=== PATIENT | male | born 1990 | race Two or more races ===

== ENCOUNTER 2018-06-11 07:31 | Emergency (ER) | payer MEDICAID, OTHER ==
[~2018-06-11] VITALS: Ht 170.2 cm; Wt 74.8 kg
[2018-06-11 07:58] VITALS: BP 152/91
== END 2018-06-11 08:00 ==
LOC: EDBD 07:31 → MERGE 07:40 → ER 07:40
DX: S60.512A Abrasion of left hand, initial encounter (principal); F17.210 Nicotine dependence, cigarettes, uncomplicated; F12.10 Cannabis abuse, uncomplicated; F15.10 Other stimulant abuse, uncomplicated; Z02.89 Encounter for other administrative examinations; X58.XXXA Exposure to other specified factors, initial encounter; Y93.89 Activity, other specified; Y99.8 Other external cause status; Y92.89 Other specified places as the place of occurrence of the external cause

== ENCOUNTER 2023-05-07 00:13 | Emergency (ER) | payer MEDICAID ==
[~2023-05-07] VITALS: Ht 170.2 cm; Wt 79.0 kg
[2023-05-07 00:13] VITALS: BP 149/84; PULSE 85; RESP 20; O2SAT 98
[2023-05-07] MEDS ORDERED: CYCL-837 PO (01:57)
== END 2023-05-07 04:40 | disposition home or self-care (01) ==
LOC: ER 00:13
DX: S01.03XA Puncture wound without foreign body of scalp, initial encounter (principal); M25.532 Pain in left wrist; F17.210 Nicotine dependence, cigarettes, uncomplicated; F12.10 Cannabis abuse, uncomplicated; F15.10 Other stimulant abuse, uncomplicated; V43.52XA Car driver injured in collision with other type car in traffic accident, initial encounter; Y93.89 Activity, other specified; Y92.488 Other paved roadways as the place of occurrence of the external cause; Y99.8 Other external cause status
CPT/HCPCS: 70450; 72125

== ENCOUNTER 2024-04-25 13:33 | Inpatient (IN) | payer MEDICAID ==
[~2024-04-25] VITALS: Ht 165.1 cm; Wt 82.0 kg
[~2024-04-25 13:33] MED LIST: CYCL-837 PO
[2024-04-25] MEDS: LORazepam 2MG/ML-1ML VIAL IV ONE ×3 (14:06→14:29)
[2024-04-25] MEDS: LORazepam 2MG/ML-1ML VIAL ONE (14:18)
[2024-04-25] MEDS: SODIUM CHLORIDE 0.9% 1,000 ML IVB ONE (14:23)
[2024-04-25] MEDS: ONDANSETRON HCL 4 MG/2 ML VIAL IV ONE (14:28)
[2024-04-25] MEDS: MULTIPLE VITAMIN TAB PO ONE (14:29)
[2024-04-25] MEDS: THIAMINE 100mg/ml INJ (200mg/2ml VIAL) IV ONE (14:29)
[2024-04-25 14:43] VITALS: PULSE 89; RESP 21; O2SAT 98
--- NOTE | 2024-04-25 15:01 | ED.PDOC ---
HPI (NEURO) HPI Comments 34-year-old male with no reported PMHx brought in by EMS presents s/p seizure activity. Per EMS, patient was showering when family witnessed patient having a tonic clonic seizure that lasted approximately 30 seconds. Patient has no history of seizures. Per EMS, family endorses that patient drinks heavily and drinks about 750cc of liquor a day. Patient was tremulous during evaluation with stuttered speech, then began to have another tonic clonic seizure in the ambulance bay. Patient endorses heavy alcohol use, cigarette use, marijuana use, and methamphetamine use. No other symptoms or modifying factors present at this time. Chief Complaint: Seizure Time Seen by MD: 14:05 Primary Care Provider: UNK Reviewed Notes: Medications, Allergies Information Source: Emergency Med Personnel Mode of Arrival: EMS Severity: Moderate Headache Severity: None Timing: Hours Duration: Intermittent Prehospital treatment: None Seizure Quality: Tonic-clonic Seizure Location: Generalized Onset: With light exertion (SHOWERING) Circumstances: Spontaneous Past Medical History PAST MEDICAL HISTORY: Denies Surgical History: Denies all surgeries Family History Family History: Unknown Social History Smoker: Cigarettes Alcohol: Heavy Drugs: Marijuana, Methamphetamine Lives In: Home Constitutional: denies: chills, diaphoresis, fatigue, fever, malaise, sweats, weakness, others EENTM: denies: blurred vision, double vision, ear bleeding, ear discharge, ear drainage, ear pain, ear ringing, eye pain, eye redness, hearing loss, mouth pain, mouth swelling, nasal discharge, nose bleeding, nose congestion, nose pain, photophobia, tearing, throat pain, throat swelling, voice changes, others Respiratory: denies: cough, hemoptysis, orthopnea, SOB at rest, shortness of breath, SOB with excertion, stridor, wheezing, others Cardiovascular: denies: chest pain, dizzy spells, diaphoresis, Dyspnea on exertion, edema, irregular heart beat, left arm pain, lightheadedness, palpitations, PND, syncope, others Gastrointestinal: denies: abdomen distended, abdominal pain, blood streaked bowels, constipated, diarrhea, dysphagia, difficulty swallowing, hematemesis, melena, nausea, poor appetite, poor fluid intake, rectal bleeding, rectal pain, vomiting, others Genitourinary: denies: burning, dysuria, flank pain, frequency, hematuria, incontinence, penile discharge, penile sore, pain, testicle pain, testicle swelling, urgency, others Neurological: reports: seizure; denies: dizziness, fainting, headache, left sided numbness, left sided weakness, numbness, paresthesia, pre-existing deficit, right sided numbness, right sided weakness, speech problems, tingling, tremors, weakness, others Musculoskeletal: denies: back pain, gout, joint pain, joint swelling, muscle pain, muscle stiffness, neck pain, others Integumetry: denies: bruises, change in color, change in hair/nails, dryness, laceration, lesions, lumps, rash, wounds, others Allergic/Immunocompromised: denies: Difficulty Healing, Frequent Infections, Hives, Itching, others Hematologic/Lymphatic: denies: anemia, blood clots, easy bleeding, easy bruising, swollen glands, others Endocrine: denies: excessive hunger, excessive sweating, excessive thirst, excessive urination, flushing, intolerance to cold, intolerance to heat, unexplained weight gain, unexplained weight loss, others Psychiatric: denies: anxiety, bipolar disorder, depression, hopeless, panic disorder, schizophrenia, sleepless, suicidal, others All Other Systems: Reviewed and Negative Physical Exam Exam Comments Patient was initially tremulous, during my HPI began to state he felt like he was going to seize and had a tonic-clonic seizure during my examination General Appearance: Moderate Distress, Normal HEENT: Normal ENT Inspection Neck: NOT DONE Respiratory: Chest Non-Tender, Lungs Clear, No Accessory Muscle Use, No Respiratory Distress, Normal Breath Sounds Cardiovascular: No Edema, No JVD, No Murmur, No Gallop, Normal Peripheral Pulses, Regular Rate/Rhythm Breast Exam: Deferred Gastrointestinal: No Organomegaly, Non Tender, No Pulsatile Mass, Normal Bowel Sounds, Soft Genitalia: Deferred Pelvic: Deferred Rectal: Deferred Extremities: No calf tenderness, Normal capillary refill, Normal inspection, Normal range of motion, Non-tender, No pedal edema Neurologic: Alert, Other (STUDDERED SPEECH; AWAKE; speaking in full sentences, however began to ACTIVELY SEIZING UPON EVALUATION) Cerebellar Function: NOT DONE Reflexes: NOT DONE Skin: NOT DONE Lymphatic: NOT DONE EKG EKG : Pulse Rate (adult): 77 [place]: Normal Cardiac Rhythm: NSR Block: None Hypertrophy: None ST: Normal Was a procedure done? Was a procedure done?: No Differential Diagnosis (SZ) Seizure: Alcohol Withdrawl, Idiopathic, Epilepsy-Status, Other (DEHYDRATION, INTRACRANIAL HEMORRHAGE, DRUG ABUSE ) General Weakness: Electrolyte imbalance Headache: Other X-Ray, Labs, Meds, VS Vital Signs Date Time Temp Pulse Resp B/P (MAP) Pulse Ox O2 Delivery O2 Flow Rate FiO2 04/25/24 15:01 77 04/25/24 14:43 89 21 98 Room Air* 0 21 04/25/24 14:16 97.7 76 17 128/82 (97) 99 97.7 04/25/24 13:48 77 04/25/24 13:38 98.1 88 22 146/91 (109) 100 Lab Test 04/25/24 15:13 04/25/24 14:45 Range/Units Urine Color Yellow Yellow Urine Clarity Turbid H Clear Urine pH 6.0 5.0-9.0 Urine Specific [place] 1.028 1.001-1.035 Urine Protein 1+ H Negative Urine Ketones 2+ H Negative Urine Blood Negative Negative /uL Urine Nitrite Negative Negative Urine Bilirubin Negative Negative Urine Urobilinogen Normal Negative mg/dL Urine Leukocyte Esterase Negative Negative /uL Urine RBC 2 0 - 3 /hpf Urine Microscopic WBC 2 0-3 /HPF Urine Squamous Epithelial Cells Few <5 /hpf Urine Bacteria None seen None Seen /hpf Urine Mucus Few None Seen Urine Glucose Normal Normal mg/dL Urine Opiates Screen Neg NEGATIVE Urine Fentanyl Screen Neg NEGATIVE Urine Barbiturates Screen Neg NEGATIVE Urine Phencyclidine Screen Neg NEGATIVE Urine Amphetamines Screen Neg NEGATIVE Urine Benzodiazepines Screen Neg NEGATIVE Urine Cocaine Screen Neg NEGATIVE Urine Cannabinoids Screen Neg NEGATIVE White Blood Count 8.0 4.4-10.8 10^3/uL Red Blood Count 4.67 4.5-5.90 10^6/uL Hemoglobin 15.1 13.5-17.5 g/dL Hematocrit 44.3 41.0-53.0 % Mean Corpuscular Volume 94.8 80.0-100.0 fL Mean Corpuscular Hemoglobin 32.4 H 28.0-32.0 pg Mean Corpuscular Hemoglobin Concent 34.2 32.0-36.0 g/dL Red Cell Distribution Width 13.2 11.8-14.3 % Platelet Count 153 140-450 10^3/uL Mean Platelet Volume 7.8 6.9-10.8 fL Neutrophils (%) (Auto) 88.5 H 37.0-80.0 % Lymphocytes (%) (Auto) 6.2 L 10.0-50.0 % Monocytes (%) (Auto) 4.3 0.0-12.0 % Eosinophils (%) (Auto) 0.6 0.0-7.0 % Basophils (%) (Auto) 0.4 0.0-2.0 % Neutrophils # (Auto) 7.1 1.6-8.6 10 ^3/uL Lymphocytes # (Auto) 0.5 0.4-5.4 10 ^3/uL Monocytes # (Auto) 0.3 0-1.3 10 ^3/uL Eosinophils # (Auto) 0 0-0.8 10 ^3/uL Basophils # (Auto) 0 0-0.2 10 ^3/uL Nucleated Red Blood Cells 0.1 % Sodium Level 141 136-145 mmol/L Potassium Level 3.6 3.5-5.1 mmol/L Chloride Level 104 98-107 mmol/L Carbon Dioxide Level 26 20-31 mmol/L Anion Gap 11 5-15 Blood Urea Nitrogen 12 9-23 mg/dL Creatinine 1.02 0.700-1.30 mg/dL Glomerular Filtration Rate Calc 100 >90 mL/min BUN/Creatinine Ratio 11.8 10.0-20.0 Serum Glucose 108 H 74-106 mg/dL Calcium Level 9.4 8.7-10.4 mg/dL Total Bilirubin 1.0 0.2-1.0 mg/dL Aspartate Amino Transferase (AST) 116 H 13-40 U/L Alanine Aminotransferase (ALT) 87 H 7-40 U/L Alkaline Phosphatase 73 46-116 U/L Total Protein 7.7 5.7-8.2 g/dL Albumin 4.8 3.2-4.8 g/dL Vitamin B12 Level Pending Plasma/Serum Blood Alcohol 3.4 <10 mg/dL Current Medications Medications (Trade) Dose Ordered Sig/Geoff Route Start Time Stop Time Status Last Admin Sodium Chloride 1,000 ml @ 1,000 mls/hr Q1H ONCE IVB 04/25/24 14:15 04/25/24 15:14 DC 04/25/24 14:23 Ondansetron HCl (Zofran) 4 mg ONCE ONCE IV 04/25/24 14:15 04/25/24 14:16 DC 04/25/24 14:28 Thiamine HCl 100 mg NOW ONCE IV 04/25/24 14:15 04/25/24 14:16 DC 04/25/24 14:29 Multivitamins (Mvi Tab) 1 tab NOW ONCE PO 04/25/24 14:15 04/25/24 14:16 DC 04/25/24 14:29 Folic Acid 1 mg/ Dextrose 50.2 ml @ 200 mls/hr Q16M ONCE INJ 04/25/24 14:15 04/25/24 14:30 DC 04/25/24 16:16 Lorazepam (Ativan Inj) 1 mg STAT ONCE IV 04/25/24 14:15 04/25/24 14:16 DC 04/25/24 14:28 Lorazepam (Ativan Inj) 2 mg STAT ONCE IV 04/25/24 14:15 04/25/24 14:16 DC 04/25/24 14:29 Lorazepam (Ativan Inj) 1 mg ONCE ONCE IV 04/25/24 14:05 04/25/24 14:14 DC 04/25/24 14:06 [place] [id number] Ph: [phone] DIAGNOSTIC IMAGING Diagnostic Imaging Report : [id number] Signed PATIENT: KARELY CORADO ACCT: [id number] UNIT: [id number] : 1990 LOC: OVERFLOW ROOM / BED: [address] [place] [address] AGE / SEX: 34 / M ADM STATUS: ADM IN SERVICE 1536 ORDERING PHYSICIAN: MAGGIE WEBB NP PROCEDURE(s): HWOCT - HEAD WITHOUT CONTRAST REASON: new onset seizure activity ORDER NUMBER(s): [id number], ACCESSION NUMBER(s): [id number] EXAM: CT HEAD WITHOUT CONTRAST INDICATION: new onset seizure activity TECHNIQUE: CT of the head without intravenous contrast. Radiation Dose : 1. Head: CT Dose: CTDI volume is 61 mGy. Dose-length product is 979 mGy*cm The dose indicators for CT are the volume Computed Tomography (CT) Dose Index (CTDIvol) and the Dose Length Product (DLP), and are measured in units of mGy and mGy-cm, respectively. These indicators are not patient dose, but values generated from the CT scanner acquisition factors. The report includes radiation exposure data for exposures received during this examination. COMPARISON: CT HEAD WITHOUT CONTRAST on DOS: 05/07/23 FINDINGS: There is no evidence of acute intracranial hemorrhage, extra-axial collection, mass effect, midline shift, herniation or hydrocephalus. The ventricles, sulci and cisterns are age appropriate. The martinez-white differentiation is intact. A couple of poorly defined subcentimeter hypodense foci in the inferior basal ganglia are unchanged from prior and likely represent enlarged perivascular spaces. The visualized paranasal sinuses and mastoid air cells are clear. The surrounding soft tissues and osseous structures are unremarkable. IMPRESSION: No evidence of acute intracranial abnormality. Radiation optimization: All CT scans at this facility use at least one of these dose optimization techniques: automated exposure control mA and/or kV adjustment per patient size (includes targeted exams where dose is matched to clinical indication) or iterative reconstruction. ATED BY: LIBRADO OLSON DO DICTATED DATE/TIME: 04/25/24 1619 SIGNED BY: LIBRADO OLSON DO SIGNED DATE/TIME: 04/25/24 1619 CC: 34-year-old male presents here status post seizure. Patient had a seizure at home while taking a shower. Patient was initially speaking in full sentences with me and had a tonic-clonic seizure during my examination. Nursing was called to bedside stat and patient was given Ativan 1 mg IV stat. Soon after he again felt he was going to have another seizure and again was given Ativan 1 mg IV stat.. At this time patient does have a history of heavy alcohol use. He is drinks about 750 cc of alcohol a day. However he had reduce consumption today. At this time stat CT scan of the brain has been done which does not demonstrate any acute pathology. Blood work has returned with very low alcohol levels which is likely the cause of his current seizures today. Patient was tremulous on my examination. Suspect acute alcohol withdrawal. Blood work has been done which is largely unremarkable. At this time hospitalist team has been contacted for admission. Time of 1ST Reevaluation: 14:35 Reevaluation 1ST: Unchanged Patient Education/Counseling: Diagnosis, Treatment, Prognosis Family Education/Counseling: Diagnosis, Treatment, Prognosis Departure 1 Departure Time of Disposition: 14:54 Impression: Primary Impression: Seizure Additional Impression: Alcohol withdrawal Qualified Codes: F10.939 - Alcohol use, unspecified with withdrawal, unspecified Disposition: 09 ADMITTED INPATIENT Admit to: [facility] Condition: Guarded Critical Care Note Critical Care Time?: Yes (35 min-critical care time only) Critical care comment: Time spent evaluating the patient, emergently treating seizure activity multiple times in the ER. Time spent with multiple reassessments of the patient. Speaking to family. Reviewing lab work. Speaking to hospitalist team. Concern for immediate deterioration of his neurologic and cardiac systems. Stability Stability form required: No I personally scribed for UTE HUNTLEY MD ([email or web address]) on 04/25/24 at 15:01. Electronically submitted by Jamel Greco ([email or web address]). UTE HUNTLEY MD Apr 25, 2024 15:01
[2024-04-25 15:04] LABS: Basophils # (auto) 0 10 ^3/uL (0-0.2); Basophils % (auto) 0.4 % (0.0-2.0); Eosinophils # (auto) 0 10 ^3/uL (0-0.8); Eosinophils % (auto) 0.6 % (0.0-7.0); Hematocrit 44.3 % (41.0-53.0); Hemoglobin 15.1 g/dL (13.5-17.5); Lymphocytes # (auto) 0.5 10 ^3/uL (0.4-5.4); Lymphocytes % (auto) 6.2 % (10.0-50.0); Mean Corpuscular Hemoglobin 32.4 pg (28.0-32.0); Mean Corpuscular Hgb Conc. 34.2 g/dL (32.0-36.0); Mean Corpuscular Volume 94.8 fL (80.0-100.0); Monocytes # (auto) 0.3 10 ^3/uL (0-1.3); Monocytes % (auto) 4.3 % (0.0-12.0); Neutrophils # (auto) 7.1 10 ^3/uL (1.6-8.6); Neutrophils % (auto) 88.5 % (37.0-80.0); Nucleated Red Blood Cells % 0.1 %; Platelet Count (auto) 153 10^3/uL (140-450); Red Blood Cells 4.67 10^6/uL (4.5-5.90); Red Cell Distribution Width 13.2 % (11.8-14.3)
[2024-04-25 15:18] LABS: Alanine Aminotransferase 87 U/L (7-40); Albumin 4.8 g/dL (3.2-4.8); Alkaline Phosphatase 73 U/L (46-116); Anion Gap 11 (5-15); Aspartate Aminotransferase 116 U/L (13-40); BUN/Creatinine Ratio 11.8 (10.0-20.0); Blood Alcohol 3.4 mg/dL (<10); Blood Urea Nitrogen 12 mg/dL (9-23); Calcium 9.4 mg/dL (8.7-10.4); Carbon Dioxide 26 mmol/L (20-31); Chloride 104 mmol/L (98-107); Glucose 108 mg/dL (74-106); Potassium 3.6 mmol/L (3.5-5.1); Sodium 141 mmol/L (136-145); Total Protein 7.7 g/dL (5.7-8.2)
[2024-04-25] MEDS ORDERED: MORPHINE SULFATE INJ 2 MG/ml SYRG IV PRN (15:45)
[2024-04-25] MEDS ORDERED: LORazepam 2MG/ML-1ML VIAL IV PRN (15:45)
[2024-04-25] MEDS ORDERED: NITROGLYCERIN 0.4 MG SL TAB SL PRN (15:45)
--- NOTE | 2024-04-25 15:53 | DVHHP2 ---
History of Present Illness Reason for Visit: Breakthrough seizures History of Present Illness Patient was a 34-year-old male presenting to the emergency room with acute seizure activity. According to family that was bedside, the patient had one witnessed tonic-clonic seizure at home prior to the ambulance arriving, as well as having one additional one in the ambulance [place] in the hospital. At the current time, patient was alert and able to follow commands. Patient does present with stuttering, and ataxic movements in his upper extremities. Apparently, the patient drinks approximately 750 mL of alcohol daily, with the patient reporting that he has not had any acute cessation. Alcohol screen at this time is currently negative. Patient denies any other illicit drug use. Patient denies having any previous medical history. Past Surgical History: None Family History: None Smoke: No ALCOHOL: heavy Drugs: None Lives: with Family Review of Systems Constitutional: Yes: Other (Denies tremors) Eyes: No: Pain, Vision change, Conjunctivae inflammation, Eyelid inflammation, Other, Redness ENT: No: Ear pain, Ear discharge, Nose pain, Nose discharge, Nose congestion, Mouth pain, Mouth swelling, Throat pain, Throat swelling, Other Respiratory: No: Cough, Dry, Shortness of breath, SOB with excertion, Wheezing, Hemoptysis, Pleuritic Pain, Sputum, Wheezing, Other Cardiovascular: No: Chest Pain, Palpitations, Orthopnea, Paroxysmal Noc. Dyspn ea, Edema, Lt Headedness, Other Gastrointestinal: No: Nausea, Vomiting, Abdominal Pain, Diarrhea, Constipation, Melena, Hematochezia, Other Genitourinary: No Dysuria, No Frequency, No Incontinence, No Hematuria, No Retention, No Other Musculoskeletal: No: other, neck pain, shoulder pain, arm pain, back pain, hand pain, leg pain, foot pain Skin: No: Rash, Lesions, Jaundice, Bruising, Other Neurological: No: Weakness, Numbness, Incoordination, Change in speech, Confusion, Seizures, Other Allergies: Coded Allergies: NO KNOWN ALLERGIES (Unverified , 06/22/09) Medications Current Medications Medications Dose Ordered Sig/Geoff Route Start Time Stop Time Status Last Admin Dose Admin Multivitamins 1 tab DAILY PO 04/26/24 10:00 UNV Thiamine HCl 100 mg DAILY IV 04/26/24 10:00 UNV Nitroglycerin 0.4 mg Q5MINP PRN SL 04/25/24 15:45 UNV Morphine Sulfate 2 mg Q30M PRN IV 04/25/24 15:45 UNV Lorazepam 1 mg Q5MINP PRN IV 04/25/24 15:45 UNV Chlordiazepoxide HCl 10 mg QID PO 04/25/24 18:00 UNV Sodium Chloride 1,000 ml @ 100 mls/hr Q10H IV 04/25/24 15:45 UNV Morphine Sulfate 1 mg Q4HPRN PRN IV 04/25/24 15:45 UNV Acetaminophen/ Hydrocodone Bitart 1 tab Q6HPRN PRN PO 04/25/24 15:45 UNV Acetaminophen 500 mg Q8HP PRN PO 04/25/24 15:45 UNV Ondansetron HCl 4 mg Q6HP PRN IV 04/25/24 15:45 UNV Exam Vital Signs Vital Signs Date Time Temp Pulse Resp B/P (MAP) Pulse Ox O2 Delivery O2 Flow Rate FiO2 04/25/24 15:01 77 04/25/24 14:43 21 98 Room Air* 0 21 04/25/24 14:16 97.7 128/82 (97) 97.7 General Appearance: Alert, Oriented X3, Cooperative, moderate distress HEENT: Atraumatic, PERRLA Respiratory: Normal air movement Cardiovascular: Normal S1, Normal S2 Abdominal: Normal bowel sounds, Soft, No tenderness Extremities: No clubbing, No cyanosis, No edema, Normal pulses, No tenderness/swelling Neuro: Cranial nerves 3-12 NL, Other (Ataxia in upper extremities. Stuttering. ) Psych/Mental Status: Mental status NL, Mood NL Labs/Xrays Labs Test 04/25/24 14:45 Range/Units White Blood Count 8.0 4.4-10.8 10^3/uL Red Blood Count 4.67 4.5-5.90 10^6/uL Hemoglobin 15.1 13.5-17.5 g/dL Hematocrit 44.3 41.0-53.0 % Mean Corpuscular Volume 94.8 80.0-100.0 fL Mean Corpuscular Hemoglobin 32.4 H 28.0-32.0 pg Mean Corpuscular Hemoglobin Concent 34.2 32.0-36.0 g/dL Red Cell Distribution Width 13.2 11.8-14.3 % Platelet Count 153 140-450 10^3/uL Mean Platelet Volume 7.8 6.9-10.8 fL Neutrophils (%) (Auto) 88.5 H 37.0-80.0 % Lymphocytes (%) (Auto) 6.2 L 10.0-50.0 % Monocytes (%) (Auto) 4.3 0.0-12.0 % Eosinophils (%) (Auto) 0.6 0.0-7.0 % Basophils (%) (Auto) 0.4 0.0-2.0 % Neutrophils # (Auto) 7.1 1.6-8.6 10 ^3/uL Lymphocytes # (Auto) 0.5 0.4-5.4 10 ^3/uL Monocytes # (Auto) 0.3 0-1.3 10 ^3/uL Eosinophils # (Auto) 0 0-0.8 10 ^3/uL Basophils # (Auto) 0 0-0.2 10 ^3/uL Nucleated Red Blood Cells 0.1 % Sodium Level 141 136-145 mmol/L Potassium Level 3.6 3.5-5.1 mmol/L Chloride Level 104 98-107 mmol/L Carbon Dioxide Level 26 20-31 mmol/L Anion Gap 11 5-15 Blood Urea Nitrogen 12 9-23 mg/dL Creatinine 1.02 0.700-1.30 mg/dL Glomerular Filtration Rate Calc 100 >90 mL/min BUN/Creatinine Ratio 11.8 10.0-20.0 Serum Glucose 108 H 74-106 mg/dL Calcium Level 9.4 8.7-10.4 mg/dL Total Bilirubin 1.0 0.2-1.0 mg/dL Aspartate Amino Transferase (AST) 116 H 13-40 U/L Alanine Aminotransferase (ALT) 87 H 7-40 U/L Alkaline Phosphatase 73 46-116 U/L Total Protein 7.7 5.7-8.2 g/dL Albumin 4.8 3.2-4.8 g/dL Plasma/Serum Blood Alcohol 3.4 <10 mg/dL Assessment/Plan Assessment/Plan Impression: -breakthrough seizure activity -probable acute alcohol withdrawal -alcoholism -transaminitis Plan: -admit to telemetry unit -CT scan of the head -MVI, thiamine daily -IV hydration -scheduled Librium -IV lorazepam p.r.n. breakthrough seizures, worsening withdrawal symptoms -check vitamin-D, B12, folic acid, thiamine level -repeat labs in a.m. -long discussion made with patient's family including mother was bedside. All questions answered. Total time spent with patient discussing and formulating plan of care: 35 minutes. Total time spent with patient and family regarding advance care plannin minutes. This medical document was created using an electronic medical record system with [employer] dictation system. Although this document has been carefully reviewed, there may still be some phonetic and typographical errors. These areas are purely typographical due to imperfections of the software programs, and do not reflect any compromise in the patient's medical care. Plan discussed with: Patient, Other (RN, Mother) My Orders Orders - MAGGIE WEBB NP Procedure Category Date Status Time Drug Screen LAB 04/25/24 Logged 15:[address] 04/25/24 Logged 15:36 Multiple Vitamin PHA 04/26/24 Logged Tablet (Mvi Tab) 10:00 Thiamine Inj PHA 04/26/24 Logged 10:00 Admit ADMIT 04/25/24 Transmitted 15:36 Nitroglycerin PHA 04/25/24 Logged Sublingual (Ntrostat 15:45 Morphine Sulfate PHA 04/25/24 Logged Injection 15:45 Stat Ekg For Chest BRIAN 04/25/24 In Process Pain 15:36 Notify Md Of Changes BRIAN 04/25/24 In Process From Base 15:36 [employer] For BRIAN 04/25/24 In Process 24 Hours 15:36 Emergency Dysrhythmia BRIAN 04/25/24 In Process Protocol 15:36 Rhythm Strips Once BRIAN 04/25/24 In Process Every Shift 15:36 Oxygen By Nasal RT 04/25/24 Transmitted Cannula 15:36 Lorazepam 2mg/Ml Inj PHA 04/25/24 Logged (Ativan Inj) 15:45 Chlordiazepoxide Hcl PHA 04/25/24 Logged Capsule (Librium Ca 18:00 Sodium Chloride 0.9% PHA 04/25/24 Logged 15:45 Morphine Sulfate PHA 04/25/24 Logged Injection 15:45 Hydrocodone-Acet PHA 04/25/24 Logged 5/325mg Tab ([place] 15:45 Acetaminophen Tab Or PHA 04/25/24 Logged Cap (Tylenol Tablet 15:45 Ondansetron Hcl PHA 04/25/24 Logged (Zofran) 15:45 Vitamin B12 LAB 04/25/24 Verified 15:42 Vitamin B1 (Thiamine) LAB 04/25/24 Verified 15:42 Regular Diet DIET 04/25/24 Verified Dinner Date of Service: Apr 25, 2024 Billing Provider: MAGGIE WEBB NP Common Visit Codes: [id number] INP/OBS CARE (HIGH) Secondary Visit Codes: [id number] CARE PLAN 30 MINUTES MAGGIE WEBB NP Apr 25, 2024 15:53
[2024-04-25 16:00] LABS: Urine Bacteria None Seen /hpf (None Seen)
[2024-04-25 16:11] LABS: Urine Blood Negative /uL (Negative); Urine Clarity Turbid (Clear); Urine Color Yellow (Yellow); Urine Mucus FEW (None Seen); Urine Protein, UAD 1+ (Negative); Urine Specific Gravity 1.028 (1.001-1.035); Urine Squamous Epithelial Cell FEW /hpf (<5); Urine Urobilinogen Normal (Negative); Urine WBC 2 /HPF (0-3)
[2024-04-25] MEDS: FOLIC ACID 1 MG in D5W 5% 50 ML INJ ONE (16:16)
--- NOTE | 2024-04-25 16:21 | DVH ---
EXAM: CT HEAD WITHOUT CONTRAST INDICATION: new onset seizure activity TECHNIQUE: CT of the head without intravenous contrast. Radiation Dose : 1. Head: CT Dose: CTDI volume is 61 mGy. Dose-length product is 979 mGy*cm The dose indicators for CT are the volume Computed Tomography (CT) Dose Index (CTDIvol) and the Dose Length Product (DLP), and are measured in units of mGy and mGy-cm, respectively. These indicators are not patient dose, but values generated from the CT scanner acquisition factors. The report includes radiation exposure data for exposures received during this examination. COMPARISON: CT HEAD WITHOUT CONTRAST on DOS: 05/07/23 FINDINGS: There is no evidence of acute intracranial hemorrhage, extra-axial collection, mass effect, midline s hift, herniation or hydrocephalus. The ventricles, sulci and cisterns are age appropriate. The martinez-white differentiation is intact. A couple of poorly defined subcentimeter hypodense foci in the inferior basal ganglia are unchanged from prior and likely represent enlarged perivascular spac es. The visualized paranasal sinuses and mastoid air cells are clear. The surrounding soft tissues and osseous structures are unremarkable. IMPRESSION: No evidence of acute intracranial abnormality. Radiation optimization: All CT scans at this facility use at least one of these dose optimization jg hniques: automated exposure control mA and/or kV adjustment per patient size (includes targeted exam s where dose is matched to clinical indication) or iterative reconstruction.
[2024-04-25] MEDS: SODIUM CHLORIDE 0.9% 1,000 ML IV SCH (16:34)
[2024-04-25 16:36] LABS: Amphetamine Screen, Urine Neg (NEGATIVE); Barbiturate Scree,Urine Neg (NEGATIVE); Benzodiazephine Screen, Urine Neg (NEGATIVE); Opiate Scree,Urine Neg (NEGATIVE); Phencyclidine Screen, Urine Neg (NEGATIVE)
[2024-04-25 16:40] LABS: Cannabinoid Screen, Urine Neg (NEGATIVE); Cocaine Screen, Urine Neg (NEGATIVE)
[2024-04-25] MEDS: chlordiazePOXIDE HCL 5 MG CAP PO SCH (18:03)
--- NOTE | 2024-04-25 18:42 | ECG ---
[facility] Test Date: 2024-04-25 Test Time: 13:48:06 Pat Name: KARELY CORADO Department: er Room: [address] [place] [address] Gender: M Deputy Court Clerk: dr CARRB: 1990 Requested By: SAGE HUDSON Order Number: [id number] Reading MD: Law Castillo Measurements Intervals [place] Rate: 77 P: -63 MS: 130 QRS: 30 QRSD: 93 T: 32 QT: 390 QTc: 442 Interpretive Statements Sinus or ectopic atrial rhythm Electronically Signed On 04-25-2024 18:50:51 PST by Law Castillo Please click the below link to view image of tracing.
[2024-04-25 19:46] VITALS: PULSE 99; RESP 15; O2SAT 95
[2024-04-25] MEDS: ONDANSETRON HCL 4 MG/2 ML VIAL IV PRN (21:39)
[2024-04-25] MEDS: MORPHINE SULFATE INJ 2 MG/ml SYRG IV PRN (21:41)
[2024-04-26 08:34] VITALS: PULSE 96; RESP 14; O2SAT 96
[2024-04-26] MEDS: THIAMINE 100mg/ml INJ (200mg/2ml VIAL) IV SCH (11:49)
[2024-04-26] MEDS: MULTIPLE VITAMIN TAB PO SCH (11:49)
--- NOTE | 2024-04-26 12:28 | DVHPN2 ---
Subjective Patient was states that his anxiety and tremors have improved. Reviewed: Care Plan, H&P, Labs, Medications Changes from previous H/P or p: No Changes General: Per HPI Eyes: No Pain, No Vision change, No Conjunctivae inflammation, No Eyelid inflammation, No Other, No Redness ENT: No Ear pain, No Ear discharge, No Nose pain, No Nose discharge, No Nose congestion, No Mouth pain, No Mouth swelling, No Throat pain, No Throat swelling, No Other Cardiovascular: No Chest Pain, No Palpitations, No Orthopnea, No Paroxysmal Noc. Dyspnea, No Edema, No Lt Headedness, No Other Respiratory: No Cough, No Dry, No Shortness of breath, No SOB with excertion, No Wheezing, No Hemoptysis, No Pleuritic Pain, No Sputum, No Other Gastrointestinal: No Nausea, No Vomiting, No Abdominal Pain, No Diarrhea, No Constipation, No Melena, No Hematochezia, No Other Genitourinary: No Dysuria, No Frequency, No Incontinence, No Hematuria, No Retention, No Other Musculoskeletal: No other, No neck pain, No shoulder pain, No arm pain, No back pain, No hand pain, No leg pain, No foot pain Skin: No Rash, No Lesions, No Jaundice, No Bruising, No Other Objective Vitals Vital Signs Date Time Temp Pulse Resp B/P (MAP) Pulse Ox O2 Delivery O2 Flow Rate FiO2 04/26/24 12:00 60 04/26/24 08:34 14 96 Room Air* 0 21 04/26/24 08:00 113/71 (85) 04/26/24 07:32 98.2 98.2 Intake/Output Intake and Output 04/26/24 07:00 Intake Total 1350.2 ml Balance 1350.2 ml Intake IV Total 1350.2 ml General Appearance: Alert, Oriented X3, Cooperative, mild distress HEENT: Atraumatic, PERRLA Lungs: Clear to auscultation, Normal air movement Cardiovascular: Normal S1, Normal S2 Abdomen: Normal bowel sounds, Soft, No tenderness, No hepatospenomegaly, No masses Musculoskeletal: Normal sensory function, Normal motor function Neuro: Normal gait, Normal speech Psych/Mental Status: Mental status NL, Mood NL Medications Current Medications Medications Dose Ordered Sig/Geoff Route Start Time Stop Time Status Last Admin Dose Admin Multivitamins 1 tab DAILY PO 04/26/24 10:00 04/26/24 11:49 1 TAB Thiamine HCl 100 mg DAILY IV 04/26/24 10:00 04/26/24 11:49 100 MG Nitroglycerin 0.4 mg Q5MINP PRN SL 04/25/24 15:45 Morphine Sulfate 2 mg Q30M PRN IV 04/25/24 15:45 Lorazepam 1 mg Q5MINP PRN IV 04/25/24 15:45 Chlordiazepoxide HCl 10 mg QID PO 04/25/24 18:00 04/26/24 05:58 10 MG Sodium Chloride 1,000 ml @ 100 mls/hr Q10H IV 04/25/24 15:45 04/26/24 11:49 100 MLS/HR Morphine Sulfate 1 mg Q4HPRN PRN IV 04/25/24 15:45 04/25/24 21:41 1 MG Acetaminophen/ Hydrocodone Bitart 1 tab Q6HPRN PRN PO 04/25/24 15:45 Acetaminophen 500 mg Q8HP PRN PO 04/25/24 15:45 Ondansetron HCl 4 mg Q6HP PRN IV 04/25/24 15:45 04/26/24 07:59 4 MG Laboratory Results Laboratory Tests 04/25/24 14:45 Chemistry Test 04/25/24 14:45 Albumin 4.8 g/dL (3.2-4.8) Calcium Level 9.4 mg/dL (8.7-10.4) Total Protein 7.7 g/dL (5.7-8.2) LFT Test 04/25/24 14:45 Alanine Aminotransferase (ALT) 87 U/L (7-40) H Alkaline Phosphatase 73 U/L (46-116) Aspartate Amino Transferase (AST) 116 U/L (13-40) H Total Bilirubin 1.0 mg/dL (0.2-1.0) Urinalysis Test 04/25/24 15:13 Urine Color Yellow (Yellow) Urine Clarity Turbid (Clear) H Urine pH 6.0 (5.0-9.0) Urine Specific [place] 1.028 (1.001-1.035) Urine Protein 1+ (Negative) H Urine Ketones 2+ (Negative) H Urine Blood Negative /uL (Negative) Urine Nitrite Negative (Negative) Urine Bilirubin Negative (Negative) Urine Urobilinogen Normal mg/dL (Negative) Urine Leukocyte Esterase Negative /uL (Negative) Urine RBC 2 /hpf (0 - 3) Urine Microscopic WBC 2 /HPF (0-3) Urine Squamous Epithelial Cells Few /hpf (<5) Urine Bacteria None seen /hpf (None Seen) Urine Mucus Few (None Seen) Urine Glucose Normal mg/dL (Normal) Labs and/or images reviewed: Labs reviewed by me, Image(s) reviewed by me Assessment/Plan Assessment/Plan Impression: -breakthrough seizure activity -probable acute alcohol withdrawal -alcoholism -transaminitis Plan: Events: CT scan of the head is unremarkable. Clinical symptoms of alcohol withdrawal are improving. -MVI, thiamine daily -IV hydration -scheduled Librium -transferred to Medical/Surgical unit -repeat labs in a.m. -social service consultation for alcohol rehabilitation resources Total time spent with patient and family regarding advance care plannin minutes. This medical document was created using an electronic medical record system with [employer] dictation system. Although this document has been carefully reviewed, there may still be some phonetic and typographical errors. These areas are purely typographical due to imperfections of the software programs, and do not reflect any compromise in the patient's medical care. Plan discussed with: Patient, Other (RN) My Orders Orders - MAGGIE WEBB DIRECTOR OF [employer]IENCE Procedure Category Date Status Time Head Without Contrast CT 04/25/24 Resulted 15:36 Multiple Vitamin PHA 04/26/24 In Process Tablet (Mvi Tab) 10:00 Thiamine Inj PHA 04/26/24 In Process 10:00 Admit ADMIT 04/25/24 Transmitted 15:36 Nitroglycerin PHA 04/25/24 In Process Sublingual (Ntrostat 15:45 Morphine Sulfate PHA 04/25/24 In Process Injection 15:45 Stat Ekg For Chest BRIAN 04/25/24 In Process Pain 15:36 Notify Md Of Changes BRIAN 04/25/24 In Process From Base 15:36 Commercial Sales Manager For BRIAN 04/25/24 In Process 24 Hours 15:36 Emergency Dysrhythmia BRIAN 04/25/24 In Process Protocol 15:36 Rhythm Strips Once BRIAN 04/25/24 In Process Every Shift 15:36 Oxygen By Nasal RT 04/25/24 Transmitted Cannula 15:36 Lorazepam 2mg/Ml Inj PHA 04/25/24 In Process (Ativan Inj) 15:45 Chlordiazepoxide Hcl PHA 04/25/24 In Process Capsule (Librium Ca 18:00 Sodium Chloride 0.9% PHA 04/25/24 In Process 15:45 Morphine Sulfate PHA 04/25/24 In Process Injection 15:45 Hydrocodone-Acet PHA 04/25/24 In Process 5/325mg Tab ([place] 15:45 Acetaminophen Tab Or PHA 04/25/24 In Process Cap (Tylenol Tablet 15:45 Ondansetron Hcl PHA 04/25/24 In Process (Zofran) 15:45 Vitamin B1 (Thiamine) LAB 04/25/24 In Process 15:42 Regular Diet DIET 04/25/24 Transmitted Dinner Basic Metabolic Panel LAB 04/27/24 Verified 04:00 * Manager Payment CONS 04/26/24 Verified Consult Transfer Orders XFER 04/26/24 Verified 12:25 Date of Service: Apr 26, 2024 Billing Provider: MAGGIE WEBB NP Common Visit Codes: [id number] INP/OBS CARE(HIGH) MAGGIE WEBB NP Apr 26, 2024 12:28
[2024-04-26 17:00] VITALS: BP 119/83; PULSE 67; RESP 18; TEMP 98.1; O2SAT 97
[2024-04-26 20:57] VITALS: BP 137/86; PULSE 55; RESP 14; TEMP 98.1; O2SAT 96
[2024-04-26] MEDS: MECLIZINE HCL 25 MG TAB PO PRN (21:10)
[2024-04-27 05:00] VITALS: BP_SYST 112; BP_SYST 123; BP_DIAS 71; BP_DIAS 75; PULSE 51; PULSE 60; RESP 14; RESP 16; TEMP 97.9; TEMP 98.3; O2SAT 98
[2024-04-27] MEDS: HYDROcodone-ACET 5/325MG TAB PO PRN (06:32)
[2024-04-27 07:05] LABS: Chloride 103 mmol/L (98-107); Potassium 3.9 mmol/L (3.5-5.1); Sodium 140 mmol/L (136-145)
[2024-04-27 07:06] LABS: Anion Gap 10 (5-15); Carbon Dioxide 27 mmol/L (20-31)
[2024-04-27 07:07] LABS: Calcium 9.7 mg/dL (8.7-10.4)
[2024-04-27 07:11] LABS: BUN/Creatinine Ratio 8.7 (10.0-20.0); Glucose 98 mg/dL (74-106)
[2024-04-27 07:18] LABS: Blood Urea Nitrogen 9 mg/dL (9-23)
[2024-04-27 09:00] VITALS: BP 114/74; PULSE 74; RESP 17; TEMP 98.2; O2SAT 96
[2024-04-27] MEDS: ACETAMINOPHEN 500 MG TAB or CAP PO PRN (10:01)
--- NOTE | 2024-04-27 12:55 | DVHPN2 ---
Subjective Patient was states that his anxiety and tremors have improved. Reviewed: Care Plan, H&P, Labs, Medications Changes from previous H/P or p: No Changes General: Per HPI Eyes: No Pain, No Vision change, No Conjunctivae inflammation, No Eyelid inflammation, No Other, No Redness ENT: No Ear pain, No Ear discharge, No Nose pain, No Nose discharge, No Nose congestion, No Mouth pain, No Mouth swelling, No Throat pain, No Throat swelling, No Other Cardiovascular: No Chest Pain, No Palpitations, No Orthopnea, No Paroxysmal Noc. Dyspnea, No Edema, No Lt Headedness, No Other Respiratory: No Cough, No Dry, No Shortness of breath, No SOB with excertion, No Wheezing, No Hemoptysis, No Pleuritic Pain, No Sputum, No Other Gastrointestinal: No Nausea, No Vomiting, No Abdominal Pain, No Diarrhea, No Constipation, No Melena, No Hematochezia, No Other Genitourinary: No Dysuria, No Frequency, No Incontinence, No Hematuria, No Retention, No Other Musculoskeletal: No other, No neck pain, No shoulder pain, No arm pain, No back pain, No hand pain, No leg pain, No foot pain Skin: No Rash, No Lesions, No Jaundice, No Bruising, No Other Objective Vitals Vital Signs Date Time Temp Pulse Resp B/P (MAP) Pulse Ox O2 Delivery O2 Flow Rate FiO2 04/27/24 09:00 98.2 74 17 114/74 (87) 96 98.2 04/27/24 08:00 Room Air* 0 21 Intake/Output Intake and Output 04/27/24 07:00 Intake Total 500 ml Balance 500 ml Intake Oral 100 ml IV Total 400 ml # Voids 2 General Appearance: Alert, Oriented X3, Cooperative, mild distress HEENT: Atraumatic, PERRLA Lungs: Clear to auscultation, Normal air movement Cardiovascular: Normal S1, Normal S2 Abdomen: Normal bowel sounds, Soft, No tenderness, No hepatospenomegaly, No masses Musculoskeletal: Normal sensory function, Normal motor function Neuro: Normal gait, Normal speech Skin: Dry, Intact Psych/Mental Status: Mental status NL, Mood NL Medications Current Medications Medications Dose Ordered Sig/Geoff Route Start Time Stop Time Status Last Admin Dose Admin Multivitamins 1 tab DAILY PO 04/26/24 10:00 04/27/24 09:47 1 TAB Nitroglycerin 0.4 mg Q5MINP PRN SL 04/25/24 15:45 Morphine Sulfate 2 mg Q30M PRN IV 04/25/24 15:45 Lorazepam 1 mg Q5MINP PRN IV 04/25/24 15:45 Morphine Sulfate 1 mg Q4HPRN PRN IV 04/25/24 15:45 04/26/24 15:07 1 MG Acetaminophen/ Hydrocodone Bitart 1 tab Q6HPRN PRN PO 04/25/24 15:45 04/27/24 06:32 1 TAB Acetaminophen 500 mg Q8HP PRN PO 04/25/24 15:45 04/27/24 10:01 500 MG Ondansetron HCl 4 mg Q6HP PRN IV 04/25/24 15:45 04/26/24 15:07 4 MG Sodium Chloride 1,000 ml @ 75 mls/hr [id number] IV 04/27/24 13:00 UNV Chlordiazepoxide HCl 10 mg Q8H PO 04/27/24 20:00 UNV Meclizine HCl 50 mg Q8HPRN PRN PO 04/27/24 13:00 UNV Thiamine HCl 100 mg DAILY PO 04/28/24 10:00 UNV Laboratory Results Laboratory Tests 04/25/24 14:45 04/27/24 06:10 Chemistry Test 04/27/24 06:10 Calcium Level 9.7 mg/dL (8.7-10.4) Urinalysis Test 04/25/24 15:13 Urine Color Yellow (Yellow) Urine Clarity Turbid (Clear) H Urine pH 6.0 (5.0-9.0) Urine Specific [place] 1.028 (1.001-1.035) Urine Protein 1+ (Negative) H Urine Ketones 2+ (Negative) H Urine Blood Negative /uL (Negative) Urine Nitrite Negative (Negative) Urine Bilirubin Negative (Negative) Urine Urobilinogen Normal mg/dL (Negative) Urine Leukocyte Esterase Negative /uL (Negative) Urine RBC 2 /hpf (0 - 3) Urine Microscopic WBC 2 /HPF (0-3) Urine Squamous Epithelial Cells Few /hpf (<5) Urine Bacteria None seen /hpf (None Seen) Urine Mucus Few (None Seen) Urine Glucose Normal mg/dL (Normal) Labs and/or images reviewed: Labs reviewed by me, Image(s) reviewed by me Assessment/Plan Assessment/Plan Impression: -breakthrough seizure activity -probable acute alcohol withdrawal -alcoholism -transaminitis Plan: Events: Withdrawal symptoms are improving. Continues to report having dizziness. States that he does not think it is too alcohol withdrawal. Continue meclizine, increase dose. -MVI, thiamine daily -Decrease normal saline to 75 mL/hour -decrease Librium to 10 mg q.8 hours. Total time spent with patient and family regarding advance care plannin minutes. This medical document was created using an electronic medical record system with [employer] dictation system. Although this document has been carefully reviewed, there may still be some phonetic and typographical errors. These areas are purely typographical due to imperfections of the software programs, and do not reflect any compromise in the patient's medical care. Plan discussed with: Patient, Other (RN) My Orders Orders - MAGGIE WEBB NP Procedure Category Date Status Time Sodium Chloride 0.9% PHA 04/27/24 Logged 13:00 Chlordiazepoxide Hcl PHA 04/27/24 Logged Capsule (Librium Ca 20:00 Meclizine Tablet PHA 04/27/24 Logged (Antivert Tablet) 13:00 Thiamine Tab PHA 04/28/24 Logged 10:00 Date of Service: Apr 27, 2024 Billing Provider: MAGGIE WEBB NP Common Visit Codes: [id number] INP/OBS CARE(HIGH) MAGGIE WEBB NP Apr 27, 2024 12:55
[2024-04-27 13:00] VITALS: BP 110/64; PULSE 73; RESP 17; TEMP 97.9; O2SAT 97
[2024-04-27] MEDS: SODIUM CHLORIDE 0.9% 1,000 ML IV SCH (15:53)
[2024-04-27 17:00] VITALS: BP 127/83; PULSE 71; RESP 16; TEMP 97.8; O2SAT 95
[2024-04-27] MEDS: MECLIZINE HCL 25 MG TAB PO PRN (17:27)
[2024-04-27] MEDS: chlordiazePOXIDE HCL 5 MG CAP PO SCH (20:33)
[2024-04-27 21:00] VITALS: BP 115/66; PULSE 73; RESP 20; TEMP 97.6; O2SAT 96
[2024-04-28 01:00] VITALS: BP 106/61; PULSE 57; RESP 20; TEMP 97.8; O2SAT 100
[2024-04-28 05:00] VITALS: BP 104/67; PULSE 58; RESP 20; TEMP 97.6; O2SAT 99
[2024-04-28 08:00] VITALS: PULSE 58; RESP 18; O2SAT 99
[2024-04-28] MEDS: THIAMINE HCL 100 MG TAB PO SCH (09:44)
--- NOTE | 2024-04-28 12:16 | DVHDS2 ---
Discharge Summary Date of Admission Apr 25, 2024 at 15:36 Date of Discharge: Apr 28, 2024 Admitting Diagnosis Breakthrough Seizures Labs/Diagnostic Data: Laboratory Results Test 04/27/24 06:10 04/25/24 16:35 04/25/24 15:13 04/25/24 14:45 Sodium Level 140 mmol/L (136-145) Potassium Level 3.9 mmol/L (3.5-5.1) Chloride Level 103 mmol/L (98-107) Carbon Dioxide Level 27 mmol/L (20-31) Anion Gap 10 (5-15) Blood Urea Nitrogen 9 mg/dL (9-23) Creatinine 1.04 mg/dL (0.700-1.30) Glomerular Filtration Rate Calc 97 mL/min (>90) BUN/Creatinine Ratio 8.7 (10.0-20.0) Serum Glucose 98 mg/dL (74-106) Calcium Level 9.7 mg/dL (8.7-10.4) Urine Color Yellow (Yellow) Urine Clarity Turbid (Clear) Urine pH 6.0 (5.0-9.0) Urine Specific [place] 1.028 (1.001-1.035) Urine Protein 1+ (Negative) Urine Ketones 2+ (Negative) Urine Blood Negative /uL (Negative) Urine Nitrite Negative (Negative) Urine Bilirubin Negative (Negative) Urine Urobilinogen Normal mg/dL (Negative) Urine Leukocyte Esterase Negative /uL (Negative) Urine RBC 2 /hpf (0 - 3) Urine Microscopic WBC 2 /HPF (0-3) Urine Squamous Epithelial Cells Few /hpf (<5) Urine Bacteria None seen /hpf (None Seen) Urine Mucus Few (None Seen) Urine Glucose Normal mg/dL (Normal) Urine Opiates Screen Neg (NEGATIVE) Urine Fentanyl Screen Neg (NEGATIVE) Urine Barbiturates Screen Neg (NEGATIVE) Urine Phencyclidine Screen Neg (NEGATIVE) Urine Amphetamines Screen Neg (NEGATIVE) Urine Benzodiazepines Screen Neg (NEGATIVE) Urine Cocaine Screen Neg (NEGATIVE) Urine Cannabinoids Screen Neg (NEGATIVE) White Blood Count 8.0 10^3/uL (4.4-10.8) Red Blood Count 4.67 10^6/uL (4.5-5.90) Hemoglobin 15.1 g/dL (13.5-17.5) Hematocrit 44.3 % (41.0-53.0) Mean Corpuscular Volume 94.8 fL (80.0-100.0) Mean Corpuscular Hemoglobin 32.4 pg (28.0-32.0) Mean Corpuscular Hemoglobin Concent 34.2 g/dL (32.0-36.0) Red Cell Distribution Width 13.2 % (11.8-14.3) Platelet Count 153 10^3/uL (140-450) Mean Platelet Volume 7.8 fL (6.9-10.8) Neutrophils (%) (Auto) 88.5 % (37.0-80.0) Lymphocytes (%) (Auto) 6.2 % (10.0-50.0) Monocytes (%) (Auto) 4.3 % (0.0-12.0) Eosinophils (%) (Auto) 0.6 % (0.0-7.0) Basophils (%) (Auto) 0.4 % (0.0-2.0) Neutrophils # (Auto) 7.1 10 ^3/uL (1.6-8.6) Lymphocytes # (Auto) 0.5 10 ^3/uL (0.4-5.4) Monocytes # (Auto) 0.3 10 ^3/uL (0-1.3) Eosinophils # (Auto) 0 10 ^3/uL (0-0.8) Basophils # (Auto) 0 10 ^3/uL (0-0.2) Nucleated Red Blood Cells 0.1 % Total Bilirubin 1.0 mg/dL (0.2-1.0) Aspartate Amino Transferase (AST) 116 U/L (13-40) Alanine Aminotransferase (ALT) 87 U/L (7-40) Alkaline Phosphatase 73 U/L (46-116) Total Protein 7.7 g/dL (5.7-8.2) Albumin 4.8 g/dL (3.2-4.8) Vitamin B12 Level 315 pg/mL (211-911) Plasma/Serum Blood Alcohol 3.4 mg/dL (<10) Other Laboratory Tests 04/27/24 06:10 04/25/24 14:45 Brief Hx & Hospital Course: History of Present Illness Patient was a 34-year-old male presenting to the emergency room with acute seizure activity. According to family that was bedside, the patient had one witnessed tonic-clonic seizure at home prior to the ambulance arriving, as well as having one additional one in the ambulance [place] in the hospital. At the current time, patient was alert and able to follow commands. Patient does present with stuttering, and ataxic movements in his upper extremities. Apparently, the patient drinks approximately 750 mL of alcohol daily, with the patient reporting that he has not had any acute cessation. Alcohol screen at this time is currently negative. Patient denies any other illicit drug use. Patient denies having any previous medical history. Course of Hospitalization: Pt. Treated with thiamine, folic acid, MVI, IV hydration, and librium. Withdrawal symptoms improved. Pt. counselled on ETOH cessation. guest services assistant consulted for ETOH resources. Pt. discharged, to follow up with PCP in 1-2 weeks. Physical examination General: Alert and Oriented x3. No acute distress. Well-nourished. Eyes: EOMI. Anicteric. HENT: Moist mucous membranes. Lungs: Clear to auscultation bilaterally. No accessory muscle use. Cardiovascular: Regular rate and rhythm. No murmur. No JVD. Abdomen: Soft, non-tender and non-distended. No palpable masses. Extremities: No edema. Non-tender. Skin: No rashes or lesions. Warm. Neurologic: No focal neurological deficits. CN II-XII grossly intact, but not individually tested. Psychiatric: Cooperative. Appropriate mood and affect. Total time spent with patient discussing and formulating plan of care: 35 minutes. This medical document was created using an electronic medical record system with [employer] a division of [employer] dictation system. Although this document has been carefully reviewed, there may still be some phonetic and typographical errors. These areas are purely typographical due to imperfections of the software programs, and do not reflect any compromise in the patient's medical care. Condition at Discharge: Guarded Final Diagnosis/Problems List Breakthrough Seizures Alcohol withdrawal Alcoholsim Discharge Disposition: Home Discharge Instruct/Medications Diet: Regular Activity: No Restrictions, As Tolerated Follow Up/Referral: PCP in 1-2 weeks Medications: no new prescriptions 36 Discharge Statement: "Patient was advised to return to the ER or call 911 if any headaches, dizziness, shortness of breath, chest pain, abdominal pain, bleeding, fevers, or worsening of medical condition. Patient was counseled about treatment plan, medications, possible side effects, patientverbalized understanding. All questions were answered to the best of my ability. This discharge took greater then 30 minutes in planning, reviewing documentation, counseling the patient, and discussing with other team members." ASSESSMENT ASSESSMENT Assessment Breakthrough Seizures Alcohol withdrawal Date of Service: Apr 28, 2024 Billing Provider: MAGGIE WEBB NP Common Visit Codes: [id number] DISCH DAY >30min MAGGIE WEBB NP Apr 28, 2024 12:16
[2024-04-28] MEDS ORDERED: MECL1TAB42 PO (12:21)
[2024-04-28 13:37] VITALS: BP 129/86; PULSE 62; RESP 18; TEMP 36.4; O2SAT 99
[2024-04-29 22:07] LABS: Vitamin B1, Whole Blood 230.3 nmol/L (66.5-200.0)
== END 2024-04-28 14:25 | disposition home or self-care (01) | DRG 53 ==
LOC: ER 13:33 → EDBD 13:33 → OVERFLOW 15:36 → TELE-CENTR 04-26 16:00 → CENTRAL 04-26 16:06
PROVIDERS: ADMIT Nurse Practitioner Acute Care; ATTEND Nurse Practitioner Acute Care
DX: G40.909 Epilepsy, unspecified, not intractable, without status epilepticus (principal); F10.239 Alcohol dependence with withdrawal, unspecified; F31.9 Bipolar disorder, unspecified; F17.210 Nicotine dependence, cigarettes, uncomplicated; R74.01 Elevation of levels of liver transaminase levels; F41.9 Anxiety disorder, unspecified
CPT/HCPCS: 36415; 70450; 80048; 80053; 80307; 80320; 81001; 82607; 84425; 85025; 93005; 96361; 96365; 96375; 96376; 99291; G0378; J2405; J7060

== ENCOUNTER 2024-06-12 00:31 | Emergency (ER) | payer MEDICAID ==
[~2024-06-12] VITALS: Ht 172.7 cm; Wt 80.4 kg
[~2024-06-12 00:31] MED LIST changes: +MECL1TAB42 PO
[2024-06-12 02:31] VITALS: BP 123/87; PULSE 78; RESP 18; TEMP 97.6; O2SAT 94
[2024-06-12] MEDS: HYDROcodone-ACET 5/325MG TAB PO ONE (02:39)
[2024-06-12] MEDS: LIDOCAINE 1% HCL (LOCAL ANESTH.) INJ 20ML MDV ID ONE (02:40)
--- NOTE | 2024-06-12 02:55 | DVH ---
CLINICAL INDICATION: 3RD FINGER INJURY TECHNIQUE: XY R HAND 3 VIEW XRAY Comparison: None FINDINGS/IMPRESSION: : There is no evidence of acute fracture or dislocation. Moderate soft tissue swelling of the bases of the 2nd and 3rd digits. Soft tissues are otherwise unremarkable.
[2024-06-12] MEDS ORDERED: AUG875T PO (03:11)
--- NOTE | 2024-06-12 03:13 | ED.PDOC ---
HPI Comments C/C of right hand laceration. Pt has 2 inch in length, deep laceration to 3nd knuckle, actively bleeding. NKDA, PT A&O x4. Denies numbness, or weakness Chief Complaint: Laceration Time Seen by MD: 00:50 Primary Care Provider: MAYTEK Reviewed Notes: Nurses Notes, Medications, Allergies Allergies: Coded Allergies: NO KNOWN ALLERGIES (Unverified , 06/22/09) Home Meds Active Scripts Amoxicillin & Pot Clavulanate (AUGMENTIN TABLET) 875 Mg Tb, 875 MG PO BID for 7 Days, #14 TAB Prov:KAVITHA LEW FILM CLEANER 06/12/24 Meclizine HCl (Meclizine 25) 25 Mg Tab, 25 MG PO Q8HPRN PRN for 10 Days, #30 TAB Prov:MAGGIE WEBB LICENSED CHEMICAL SPRAY TECHNICIAN 04/28/24 Cyclobenzaprine Hcl (Cyclobenzaprine Hcl) 5 Mg Tab, 1 TAB PO TID, #15 TAB Prov:GRAYSON MAYFIELD PAC 05/07/23 Information Source: Patient Mode of Arrival: Ambulatory Complexity: Intermediate Laceration Length (cm): 3 Past Medical History PAST MEDICAL HISTORY: Denies Surgical History: Denies all surgeries Family History Family History: Unknown Social History Smoker: Cigarettes Alcohol: Heavy Drugs: Marijuana, Methamphetamine Lives In: Home Constitutional: denies: chills, diaphoresis, fatigue, fever, malaise, sweats, weakness, others EENTM: denies: blurred vision, double vision, ear bleeding, ear discharge, ear drainage, ear pain, ear ringing, eye pain, eye redness, hearing loss, mouth pain, mouth swelling, nasal discharge, nose bleeding, nose congestion, nose pain, photophobia, tearing, throat pain, throat swelling, voice changes, others Respiratory: denies: cough, hemoptysis, orthopnea, SOB at rest, shortness of breath, SOB with excertion, stridor, wheezing, others Cardiovascular: denies: chest pain, dizzy spells, diaphoresis, Dyspnea on exertion, edema, irregular heart beat, left arm pain, lightheadedness, palpitations, PND, syncope, others Gastrointestinal: denies: abdomen distended, abdominal pain, blood streaked bowels, constipated, diarrhea, dysphagia, difficulty swallowing, hematemesis, melena, nausea, poor appetite, poor fluid intake, rectal bleeding, rectal pain, vomiting, others Genitourinary: denies: burning, dysuria, flank pain, frequency, hematuria, incontinence, penile discharge, penile sore, pain, testicle pain, testicle swelling, urgency, others Neurological: denies: dizziness, fainting, headache, left sided numbness, left sided weakness, numbness, paresthesia, pre-existing deficit, right sided numbness, right sided weakness, seizure, speech problems, tingling, tremors, weakness, others Musculoskeletal: denies: back pain, gout, joint pain, joint swelling, muscle pain, muscle stiffness, neck pain, others Integumetry: reports: wounds (Laceration right hand middle finger); denies: bruises, change in color, change in hair/nails, dryness, laceration, lesions, lumps, rash, others Allergic/Immunocompromised: denies: Difficulty Healing, Frequent Infections, Hives, Itching, others Hematologic/Lymphatic: denies: anemia, blood clots, easy bleeding, easy bruising, swollen glands, others Endocrine: denies: excessive hunger, excessive sweating, excessive thirst, excessive urination, flushing, intolerance to cold, intolerance to heat, unexplained weight gain, unexplained weight loss, others Psychiatric: denies: anxiety, bipolar disorder, depression, hopeless, panic disorder, schizophrenia, sleepless, suicidal, others Physical Exam General Appearance: No Apparent Distress, Normal HEENT: Pharynx Normal Neck: Full Range of Motion, Non-Tender, Normal Respiratory: Lungs Clear, No Respiratory Distress, Normal Breath Sounds Cardiovascular: No Murmur, Normal Peripheral Pulses, Regular Rate/Rhythm Breast Exam: Deferred Gastrointestinal: Non Tender, No Pulsatile Mass, Soft Genitalia: Deferred Pelvic: Deferred Rectal: Deferred Extremities: Normal capillary refill, Normal inspection, Normal range of motion, Non-tender, No pedal edema Musculoskeletal : Apperance: Normal Neurologic: Alert, professor of counseling II-XII nml as Tested, No Motor Deficits, Normal Affect, Normal Mood, No Sensory Deficits Cerebellar Function: Normal Reflexes: Normal Skin: Dry, Lacerations (1.5 in laceration full-thickness to dorsum hand extending into the base of the 3rd digit bleeding was controlled with a pressure dressing strength sensory motion intact), Normal Color, Warm Lymphatic: No Adenopathy Was a procedure done? Was a procedure done?: Yes Sedation Sedation?: No Informed consent obtained: Yes Laceration Repair : Location Dorsum aspect of right hand extending into base of 3rd digit Length 2.5 in Anesthetic: Lidocaine, Without epi Laceration Repair Prep: Saline, by Irrigation Laceration Repair Wound Comple: epidermis/dermis repair Laceration Repair: Number of sutures (11), Simple Informed consent obtained: Yes Risks, benefits, and alternati: Yes Notes Bleeding controlled with pressure. Patient tolerated well with minimal blood loss Differential diagnosis Generic Laceration: Fracture, Retained Foriegn Body, Neurovascular Injury, Tendon Injury, Avulsion X-Ray, Labs, Meds, VS Vital Signs Date Time Temp Pulse Resp B/P (MAP) Pulse Ox O2 Delivery O2 Flow Rate FiO2 06/12/24 02:31 97.6 78 18 123/87 (99) 94 97.6 06/12/24 02:31 78 18 94 Room Air 06/12/24 00:57 98.2 87 16 137/101 (113) 97 98.2 Current Medications Medications (Trade) Dose Ordered Sig/Geoff Route Start Time Stop Time Status Last Admin Acetaminophen/ Hydrocodone Bitart (Parrott 5/325MG Tab) 1 tab ONCE ONCE PO 06/12/24 02:30 06/12/24 02:31 DC 06/12/24 02:39 X-Ray, Labs, Meds, VS Comment See procedure note. Script Augmentin prophylactically advised take medications as prescribed side effects discussed. Advised patient to follow up with his PCP, urgent care or back here for wound re-evaluation in 2 days. Advised on ER return precautions uncontrolled bleeding or signs and symptoms of infection. Advised to keep dressing on for at least 48 hours. Patient standing agrees with discharge plan of care. Time of 1ST Reevaluation: 03:12 Reevaluation 1ST: Improved Patient Education/Counseling: Diagnosis, Treatment, Prognosis, Need For Follow Up Family Education/Counseling: No Family Present Departure 1 Departure Time of Disposition: 03:12 Impression: Primary Impression: Laceration of finger of right hand without foreign body without damage to nail Qualified Codes: S61.212A - Laceration without foreign body of right middle finger without damage to nail, initial encounter Disposition: HOME / SELF CARE / HOMELESS Condition: Stable e-Prescriptions Amoxicillin & Pot Clavulanate (AUGMENTIN TABLET) 875 Mg Tb 875 MG PO BID for 7 Days, #14 TAB Prov: KAVITHA LEW 06/12/24 Discharged With: Self Critical Care Note Critical Care Time?: No Stability Stability form required: KAVITHA Mohr Jun 12, 2024 03:13
== END 2024-06-12 03:20 | disposition home or self-care (01) ==
LOC: ER 00:31
DX: S61.212A Laceration without foreign body of right middle finger without damage to nail, initial encounter (principal); F17.210 Nicotine dependence, cigarettes, uncomplicated; X58.XXXA Exposure to other specified factors, initial encounter; Y93.89 Activity, other specified; Y92.89 Other specified places as the place of occurrence of the external cause; Y99.8 Other external cause status
CPT/HCPCS: 12002; 73130; 99283; J2003

== ENCOUNTER 2025-01-13 00:37 | Emergency (ER) | payer MEDICAID ==
[~2025-01-13] VITALS: Ht 170.2 cm; Wt 77.1 kg
[2025-01-13 00:58] VITALS: BP 133/95; PULSE 87; RESP 18; TEMP 97.4; O2SAT 96
[2025-01-13] MEDS ORDERED: CLIN1CAP70 PO (01:02)
--- NOTE | 2025-01-13 01:02 | ED.PDOC ---
History of Present Illness(SKN HPI Comments 34 male presents to ER with complaints of wound check. Patient reports he's been experiencing redness/tenderness to site of dermal piercing on left side of face x 1 hour after his dog hit this region of his face when they were playing. Denies any current pain and presents to ER ambulatory on arrival in no distress. Denies bleeding/drainage or any further symptoms/complaints Chief Complaint: Wound Check Time Seen by MD: 00:47 Primary Care Provider: MAYTEK History of Present Illness: Nurses Notes, Medications, Allergies Allergies: Coded Allergies: NO KNOWN ALLERGIES (Unverified , 06/22/09) Home Meds Active Scripts Clindamycin Hcl (Clindamycin Hcl) 300 Mg Cap, 1 CAP PO TID for 7 Days, #21 CAP 0 Refills Prov:NINFA ASENCIO PA 01/13/25 Meclizine HCl (Meclizine 25) 25 Mg Tab, 25 MG PO Q8HPRN PRN for 10 Days, #30 TAB Prov:MAGGIE WEBB LINK AND LINK KNITTING MACHINE OPERATOR 04/28/24 Cyclobenzaprine Hcl (Cyclobenzaprine Hcl) 5 Mg Tab, 1 TAB PO TID, #15 TAB Prov:GRAYSON MAYFIELD PAC 05/07/23 Information Source: Patient Mode of Arrival: Ambulatory Past Medical History PAST MEDICAL HISTORY: Denies Surgical History: Denies all surgeries Family History Family History: Unknown Social History Smoker: Cigarettes, Less Than 1 Pack/Day Alcohol: Heavy Drugs: Marijuana, Methamphetamine Lives In: Home Constitutional: denies: chills, diaphoresis, fatigue, fever, malaise, sweats, weakness, others EENTM: reports: others (As stated in HPI) Respiratory: denies: cough, hemoptysis, orthopnea, SOB at rest, shortness of breath, SOB with excertion, stridor, wheezing, others Cardiovascular: denies: chest pain, dizzy spells, diaphoresis, Dyspnea on exertion, edema, irregular heart beat, left arm pain, lightheadedness, palpitations, PND, syncope, others Gastrointestinal: denies: abdomen distended, abdominal pain, blood streaked bowels, constipated, diarrhea, dysphagia, difficulty swallowing, hematemesis, melena, nausea, poor appetite, poor fluid intake, rectal bleeding, rectal pain, vomiting, others Genitourinary: denies: burning, dysuria, flank pain, frequency, hematuria, i ncontinence, penile discharge, penile sore, pain, testicle pain, testicle swelling, urgency, others Neurological: denies: dizziness, fainting, headache, left sided numbness, left sided weakness, numbness, paresthesia, pre-existing deficit, right sided numbness, right sided weakness, seizure, speech problems, tingling, tremors, weakness, others Musculoskeletal: denies: back pain, gout, joint pain, joint swelling, muscle pain, muscle stiffness, neck pain, others Integumetry: reports: others (As stated in HPI) Allergic/Immunocompromised: denies: Difficulty Healing, Frequent Infections, Hives, Itching, others Hematologic/Lymphatic: denies: anemia, blood clots, easy bleeding, easy bruising, swollen glands, others Endocrine: denies: excessive hunger, excessive sweating, excessive thirst, excessive urination, flushing, intolerance to cold, intolerance to heat, unexp lained weight gain, unexplained weight loss, others Psychiatric: denies: anxiety, bipolar disorder, depression, hopeless, panic disorder, schizophrenia, sleepless, suicidal, others Physical Exam General Appearance: No Apparent Distress HEENT: Normal ENT Inspection, PERRL/EOMI, Pharynx Normal, TMs Normal, Other (Mild swelling/erythema noted surrounding dermal piercing to left side of face. No bleeding/drainage/fluctuance or bony tenderness noted) Neck: Full Range of Motion, Non-Tender, Normal Respiratory: Chest Non-Tender, Lungs Clear, No Accessory Muscle Use, No Respiratory Distress, Normal Breath Sounds Cardiovascular: No Murmur, No Gallop, Regular Rate/Rhythm Breast Exam: Deferred Gastrointestinal: NOT DONE Genitalia: Deferred Pelvic: Deferred Rectal: Deferred Extremities: Normal capillary refill, Normal range of motion Neurologic: Alert, No Motor Deficits, Normal Affect, Normal Mood, No Sensory Deficits Cerebellar Function: Normal Reflexes: Normal Skin: Dry, Warm Peripheral Pulses: 2+ Radial (R), 2+ Radial (L), 2+ Brachial (R), 2+ Brachial (L) Lymphatic: No Adenopathy Was a procedure done? Was a procedure done?: No Sedation Sedation?: No Differential Diagnosis (INTG) Differential Diagnosis: Abrasion Differential Diagnosis: Abscess Differential Diagnosis: Laceration X-Ray, Labs, Meds, VS Vital Signs Date Time Temp Pulse Resp B/P (MAP) Pulse Ox O2 Delivery O2 Flow Rate FiO2 01/13/25 00:58 97.4 87 18 133/95 (108) 96 97.4 01/13/25 00:41 97.4 87 18 133/95 96 97.4 Wound care/cleaning discussed and advised Advised to follow up with PCP in 1-2 days Patient verbalized understanding and agreeable with current plan of care Advised to return to ER immediately if symptoms worsen Time of 1ST Reevaluation: 00:44 Reevaluation 1ST: N/A Patient Education/Counseling: Diagnosis, Treatment, Prognosis, Need For Follow Up Family Education/Counseling: No Family Present SEPSIS Sepsis Screen Date sepsis recognized/suspect: Jan 13, 2025 Time Sepsis recognized/suspect: 0044 Recent Procedure: No On Antibiotic Therapy: No Respiratory Rate >20: No Heart Rate >90: No Temp<36 C (96.8 F) or >38.3 C: No SBP <90 or MAP <65 mmHG: No New Acute Mental Status Change: No Is the patient on CPAP, BIPAP,: No Vital Signs Date Time Temp Pulse Resp B/P (MAP) Pulse Ox O2 Delivery O2 Flow Rate FiO2 01/13/25 00:58 97.4 87 18 133/95 (108) 96 97.4 01/13/25 00:41 97.4 87 18 133/95 96 97.4 Departure 1 Departure Time of Disposition: 01:00 Impression: Primary Impression: Cellulitis, face Disposition: 01 HOME / SELF CARE / HOMELESS Condition: Stable e-Prescriptions Clindamycin Hcl (Clindamycin Hcl) 300 Mg Cap 1 CAP PO TID for 7 Days, #21 CAP 0 Refills Prov: NINFA ASENCIO 01/13/25 Discharged With: Self Critical Care Note Critical Care Time?: No Stability Stability form required: No Heart Score Heart Score: Heart Score Response (Comments) Value History N/A 0 EKG N/A 0 Age N/A 0 Risk Factors N/A 0 Troponin N/A 0 Total 0 NINFA ASENCIO Jan 13, 2025 01:02
== END 2025-01-13 01:13 | disposition home or self-care (01) ==
LOC: ER 00:37
DX: L03.211 Cellulitis of face (principal); F10.90 Alcohol use, unspecified, uncomplicated; F12.90 Cannabis use, unspecified, uncomplicated; F19.90 Other psychoactive substance use, unspecified, uncomplicated; F17.210 Nicotine dependence, cigarettes, uncomplicated; Z79.899 Other long term (current) drug therapy

== ENCOUNTER 2025-01-22 19:21 | Emergency (ER) | payer MEDICAID ==
[~2025-01-22] VITALS: Ht 170.2 cm; Wt 76.5 kg
[~2025-01-22 19:21] MED LIST changes: +CLIN1CAP70 PO
[2025-01-22 19:23] VITALS: TEMP 97
--- NOTE | 2025-01-22 20:50 | ED.PDOC ---
HPI (NEURO) HPI Comments 34-year-old male who came to ER for seizures. Patient has a history of seizures and alcoholism. Patient is supposed to take his Topamax, but has not been able to take his medications for 2 weeks since it makes him feel unwell. Had 2 episodes of seizures last night, and another 1 this morning. Patient states he can not control his tremors Chief Complaint: Seizure Time Seen by MD: 20:50 Primary Care Provider: UNK Reviewed Notes: Nurses Notes Information Source: Patient Mode of Arrival: Ambulatory Severity: Moderate Past Medical History PAST MEDICAL HISTORY: Seizures Surgical History: Denies all surgeries Family History Family History: Unknown Social History Smoker: Cigarettes, Less Than 1 Pack/Day Alcohol: Heavy Drugs: Marijuana Lives In: Home Constitutional: denies: chills, diaphoresis, fatigue, fever, malaise, sweats, weakness, others EENTM: denies: blurred vision, double vision, ear bleeding, ear discharge, ear drainage, ear pain, ear ringing, eye pain, eye redness, hearing loss, mouth pain, mouth swelling, nasal discharge, nose bleeding, nose congestion, nose pain, photophobia, tearing, throat pain, throat swelling, voice changes, others Respiratory: denies: cough, hemoptysis, orthopnea, SOB at rest, shortness of breath, SOB with excertion, stridor, wheezing, others Cardiovascular: denies: chest pain, dizzy spells, diaphoresis, Dyspnea on exertion, edema, irregular heart beat, left arm pain, lightheadedness, palpitations, PND, syncope, others Gastrointestinal: denies: abdomen distended, abdominal pain, blood streaked bowels, constipated, diarrhea, dysphagia, difficulty swallowing, hematemesis, melena, nausea, poor appetite, poor fluid intake, rectal bleeding, rectal pain, vomiting, others Genitourinary: denies: burning, dysuria, flank pain, frequency, hematuria, incontinence, penile discharge, penile sore, pain, testicle pain, testicle swelling, urgency, others Neurological: reports: seizure, tremors; denies: dizziness, fainting, headache, left sided numbness, left sided weakness, numbness, paresthesia, pre-existing deficit, right sided numbness, right sided weakness, speech problems, tingling, weakness, others Musculoskeletal: denies: back pain, gout, joint pain, joint swelling, muscle pain, muscle stiffness, neck pain, others Integumetry: denies: bruises, change in color, change in hair/nails, dryness, laceration, lesions, lumps, rash, wounds, others Allergic/Immunocompromised: denies: Difficulty Healing, Frequent Infections, Hives, Itching, others Hematologic/Lymphatic: denies: anemia, blood clots, easy bleeding, easy bruising, swollen glands, others Endocrine: denies: excessive hunger, excessive sweating, excessive thirst, excessive urination, flushing, intolerance to cold, intolerance to heat, unexplained weight gain, unexplained weight loss, others Psychiatric: denies: anxiety, bipolar disorder, depression, hopeless, panic disorder, schizophrenia, sleepless, suicidal, others Physical Exam General Appearance: No Apparent Distress, Normal HEENT: Normal ENT Inspection, Pharynx Normal, TMs Normal Neck: Full Range of Motion, Non-Tender, Normal, Normal Inspection Respiratory: Chest Non-Tender, Lungs Clear, No Accessory Muscle Use, No Respiratory Distress, Normal Breath Sounds Cardiovascular: No Edema, No JVD, No Murmur, No Gallop, Normal Peripheral Pulses, Regular Rate/Rhythm Breast Exam: Deferred Gastrointestinal: No Organomegaly, Non Tender, No Pulsatile Mass, Normal Bowel Sounds, Soft Genitalia: Deferred Pelvic: Deferred Rectal: Deferred Extremities: No calf tenderness, Normal capillary refill, Normal inspection, Normal range of motion, Non-tender, No pedal edema Musculoskeletal : Apperance: Normal Neurologic: Alert, green end department supervisor II-XII nml as Tested, No Motor Deficits, Normal Affect, Normal Mood, No Sensory Deficits Cerebellar Function: Normal Reflexes: Normal Skin: Dry, Normal Color, Warm Lymphatic: No Adenopathy Was a procedure done? Was a procedure done?: No Differential Diagnosis (SZ) Seizure: Psychogenic Seizure, Alcohol Withdrawl, Hypoglycemia, Epilepsy-Break Through, Epilepsy-Status X-Ray, Labs, Meds, VS Vital Signs Date Time Temp Pulse Resp B/P (MAP) Pulse Ox O2 Delivery O2 Flow Rate FiO2 01/22/25 21:24 84 16 130/78 (95) 99 01/22/25 19:23 97.0 94 18 147/100 95 97.0 Lab Test 01/22/25 20:58 01/22/25 20:50 Range/Units POC Glucose 122 H 70-106 mg/dl White Blood Count 5.5 4.4-10.8 10^3/uL Red Blood Count 4.38 L 4.5-5.90 10^6/uL Hemoglobin 14.4 13.5-17.5 g/dL Hematocrit 42.9 41.0-53.0 % Mean Corpuscular Volume 97.9 80.0-100.0 fL Mean Corpuscular Hemoglobin 32.9 H 28.0-32.0 pg Mean Corpuscular Hemoglobin Concent 33.6 32.0-36.0 g/dL Red Cell Distribution Width 12.7 11.8-14.3 % Platelet Count 148 140-450 10^3/uL Mean Platelet Volume 8.2 6.9-10.8 fL Neutrophils (%) (Auto) 45.2 37.0-80.0 % Lymphocytes (%) (Auto) 41.2 10.0-50.0 % Monocytes (%) (Auto) 11.2 0.0-12.0 % Eosinophils (%) (Auto) 1.7 0.0-7.0 % Basophils (%) (Auto) 0.7 0.0-2.0 % Neutrophils # (Auto) 2.5 1.6-8.6 10 ^3/uL Lymphocytes # (Auto) 2.2 0.4-5.4 10 ^3/uL Monocytes # (Auto) 0.6 0-1.3 10 ^3/uL Eosinophils # (Auto) 0.1 0-0.8 10 ^3/uL Basophils # (Auto) 0 0-0.2 10 ^3/uL Nucleated Red Blood Cells 0.1 % Sodium Level 145 136-145 mmol/L Potassium Level 3.1 L 3.5-5.1 mmol/L Chloride Level 107 98-107 mmol/L Carbon Dioxide Level 21 20-31 mmol/L Anion Gap 17 H 5-15 Blood Urea Nitrogen 9 9-23 mg/dL Creatinine 0.87 0.700-1.30 mg/dL Glomerular Filtration Rate Calc 117 >90 mL/min BUN/Creatinine Ratio 10.3 10.0-20.0 Serum Glucose 121 H 74-106 mg/dL Calcium Level 8.8 8.7-10.4 mg/dL Magnesium Level 2.1 1.6-2.6 mg/dL Total Bilirubin 0.8 0.2-1.0 mg/dL Aspartate Amino Transferase (AST) 474 H 13-40 U/L Alanine Aminotransferase (ALT) 263 H 7-40 U/L Alkaline Phosphatase 109 46-116 U/L Total Protein 7.6 5.7-8.2 g/dL Albumin 4.5 3.2-4.8 g/dL Salicylates Level < 3.0 -30 mg/dL Acetaminophen Level < 2.0 L 10.0-20.0 UG/ML Plasma/Serum Blood Alcohol 289.0 H <10 mg/dL Current Medications Medications (Trade) Dose Ordered Sig/Geoff Route Start Time Stop Time Status Last Admin Lorazepam (Ativan Inj) 2 mg ONCE ONCE IV 01/22/25 20:45 01/22/25 20:47 DC 01/22/25 20:55 Potassium Chloride (Klor-Con Tablet) 20 meq ONCE ONCE PO 01/22/25 23:00 01/22/25 23:01 DC 01/22/25 23:46 Time of 1ST Reevaluation: 20:47 Reevaluation 1ST: Unchanged Patient Education/Counseling: Diagnosis, Treatment Family Education/Counseling: No Family Present Departure 1 Departure Time of Disposition: 22:40 Impression: Primary Impression: Alcohol abuse Additional Impression: Seizure disorder Disposition: 01 HOME / SELF CARE / HOMELESS Condition: Stable Discharged With: Self Critical Care Note Critical Care Time?: Yes (35 min-critical care time only) Stability Stability form required: No Heart Score Heart Score: Heart Score Response (Comments) Value History N/A 0 EKG N/A 0 Age N/A 0 Risk Factors N/A 0 Troponin N/A 0 Total 0 I personally scribed for EVELYNE DOUGLAS MD ([email or web address]) on 01/22/25 at 20:50. Electronically submitted by Rolo Macario ([email or web address]). EVELYNE DOUGLAS MD Jan 22, 2025 20:50
[2025-01-22] MEDS: LORazepam 2MG/ML-1ML VIAL IV ONE (20:55)
[2025-01-22 21:04] LABS: Hematocrit 42.9 % (41.0-53.0); Hemoglobin 14.4 g/dL (13.5-17.5); Mean Corpuscular Hemoglobin 32.9 pg (28.0-32.0); Mean Corpuscular Volume 97.9 fL (80.0-100.0); Nucleated Red Blood Cells % 0.1 %
[2025-01-22 21:24] VITALS: BP 130/78; PULSE 84; RESP 16; O2SAT 99
[2025-01-22 21:24] LABS: Albumin 4.5 g/dL (3.2-4.8); Alkaline Phosphatase 109 U/L (46-116); Anion Gap 17 (5-15); BUN/Creatinine Ratio 10.3 (10.0-20.0); Blood Urea Nitrogen 9 mg/dL (9-23); Calcium 8.8 mg/dL (8.7-10.4); Carbon Dioxide 21 mmol/L (20-31); Magnesium 2.1 mg/dL (1.6-2.6); Sodium 145 mmol/L (136-145); Total Protein 7.6 g/dL (5.7-8.2)
[2025-01-22 21:25] LABS: Bilirubin, Total 0.8 mg/dL (0.2-1.0)
[2025-01-22 21:26] LABS: Alanine Aminotransferase 263 U/L (7-40); Chloride 107 mmol/L (98-107); Glucose 121 mg/dL (74-106); Potassium 3.1 mmol/L (3.5-5.1)
[2025-01-22 22:27] LABS: Acetaminophen < 2.0 UG/ML (10.0-20.0); Salicylate < 3.0 mg/dL (-30)
[2025-01-22] MEDS: POTASSIUM CHL 20 Meq TABLET PO ONE (23:46)
== END 2025-01-22 23:47 | disposition home or self-care (01) ==
LOC: ER 19:21
DX: F10.10 Alcohol abuse, uncomplicated (principal); G40.909 Epilepsy, unspecified, not intractable, without status epilepticus; F17.210 Nicotine dependence, cigarettes, uncomplicated; F12.90 Cannabis use, unspecified, uncomplicated; Z79.899 Other long term (current) drug therapy
CPT/HCPCS: 36415; 80053; 80320; 80329; 82947; 83735; 85025; 96374; 99283; J2060; 82962